=== PATIENT | female | born 1955 | race Caucasian/White ===

== ENCOUNTER 2024-11-11 22:30 | Emergency (ER) | payer MEDICARE, MEDICAID, SELFPAY ==
[2024-11-11 22:31] VITALS: BMI 36.6
[2024-11-11 23:01] VITALS: BP 143/85; PULSE 68; RESP 18; TEMP 36.8; O2SAT 95
--- NOTE | 2024-11-11 23:24 | XR_ITS ---
Examination: AP chest single view Technique one AP upright portable chest single view Exam date and time: November 11, 2024 1140 hrs. Indications: Chest pain today coughing one week. Findings: Opacity in the right middle lobe lingular segment Mild enlargement cardiac contour No pulmonary edema Significant osteopenia Impression: Pneumonia right middle lobe lingular segment left upper lobe
--- NOTE | 2024-11-11 23:24 | EKG_ITS ---
[facility] Test Date: 2024-11-11 Pat Name: MELISSA STACY Department: Room: - Gender: Female Equal Opportunity Director: : 1955 Requested By: Francisco Diaz Order Number: [id number] Reading MD: Francisco Diaz Measurements Intervals [place] Rate: 67 P: TX: QRS: 33 QRSD: 90 T: -3 QT: 297 QTc: 314 Interpretive Statements SUPRAVENTRICULAR RHYTHM LOW QRS VOLTAGE IN PRECORDIAL LEADS [QRS DEFLECTION < 1.0 mV IN CHEST LEADS] POSSIBLE ANTERIOR MYOCARDIAL INFARCTION , OF INDETERMINATE AGE [30 ms Q WAVE IN V3/V4, OR R < 0.2 mV IN V4] No previous ECG available for comparison /[email or web address]/[id number]
--- NOTE | 2024-11-11 23:24 | XR_ITS ---
Examination: CT brain head without contrast. 2-D sagittal coronal reconstructions Exam date and time: November 11, 2024 at 11:50 PM Indications: Headaches elevated blood pressure today, diagnosis multiple sclerosis CTDI: vol (mGy):49.9 DLP: (mGycm):1029 Technique: Multiple CT axial sections of the brain have been obtained, 5 mm slice thickness. Contrast has not been administered. 2-D sagittal, coronal reconstructions have been obtained Low dose protocols were performed. One or more of the following dose reduction techniques were used; automated exposure control, adjustment of the mA and/or KV according to patient size, use of iterative reconstruction technique. Findings: No significant ventricular enlargement. Intra-axial or extra-axial hemorrhage density is not seen. No mass effect or midline shift Basal cisterns are not remarkable. Fourth ventricle is midline. Cranial vault intact. Impression: Negative for acute hemorrhage, mass effect or midline shift Advise clinical correlation follow-up accordingly
--- NOTE | 2024-11-11 23:46 | EDNOTE_ITS ---
Upper Respiratory Inf. RME/HPI General Chief Complaint: Headache Stated Complaint: HIGH BLOOD PRESSURE, HEADACHE, BACK PAIN Time Seen by Provider: 11/11/24 23:20 Arrival date/time: 11/11/24 22:30 69F with history of MS, HTN, and DM presents to ED with 1 week of cough and 2 days of PETERS that started after she's been coughing a lot. Patient denies fall/trauma, LOC, AMS, seizures, vision changes, slurred speech, and N/V. Patient states this does not feel like an MS flare. Limitations: no limitations Related Data Previous Rx's ?Medication ?Instructions ?Recorded amoxicillin 875 mg-potassium 1 tab PO BID 7 days #14 t abs 11/12/24 clavulanate 125 mg tablet azithromycin 250 mg tablet 250 mg PO QDAY 4 days #4 ta bs 11/12/24 Allergies Allergy/AdvReac Type Severity Reaction Status Date / Time quetiapine (From Seroquel) Allergy Verified 11/11/24 22:31 Review of Systems Review of Systems Systems Reviewed: All systems reviewed, normal except as documented Constitutional Constitutional: Reports system reviewed and no additional complaints, except as documented, Reports as per HPI, Denies fever(s) and Reports headache(s) ENT Ears, Nose, Mouth, and Throat: Denies disequilibrium and Reports headache(s) Cardiovascular Cardiovascular: Reports system reviewed and no additional complaints, except as documented, Denies chest pain and Denies dyspnea Respiratory Respiratory: Reports system reviewed and no additional complaints, except as documented, Reports as per HPI, Reports cough and Denies dyspnea Gastrointestinal Gastrointestinal: Reports system reviewed and no additional complaints, except as documented, Denies abdominal pain, Denies nausea and Denies vomiting Neurologic Neurologic: Reports system reviewed and no additional complaints, except as documented, Denies confusion, Denies disequilibrium and Reports headache(s) Psychiatric Psychiatric: Denies confusion Past Medical History Social History SMOKING STATUS: Never smoker ED Exam General Limitations: Present no limitations General appearance: Present alert and in no apparent distress Head Head exam: Present atraumatic Eye Eye exam: Present normal appearance, PERRL and EOMI ENT ENT exam: Present normal exam, normal oropharynx and mucous membranes moist Neck Neck exam: Present normal inspection, full ROM and trachea midline Chest Chest inspection: Present normal inspection and symmetric chest wall rise Respiratory Respiratory exam: Present normal lung sounds bilaterally Cardiovascular Cardiovascular exam: Present regular rate, normal rhythm and normal heart sounds Abdominal Exam Abdominal exam: Present soft and normal bowel sounds Extremities Exam Extremities exam: Present normal inspection and full ROM Back Exam Back exam: Present normal inspection and full ROM Neurological Exam Neurological exam: Present alert, oriented X3 and CN II-XII intact Psychiatric Psychiatric exam: Present normal affect and normal mood Skin Skin exam: Present warm, dry, intact and normal color Course Quality Measures none Orders Category Date Time Status Bedside COVID-19 Antigen Test NOW Care 11/11/24 23:24 Active Bedside Influenza A&B Antigen Test NOW Care 11/11/24 23:25 Active Blood glucose [Bedside Blood Glucose] NOW Care 11/11/24 23:25 Active EKG (ED ONLY) *Do not use* NOW Care 11/11/24 23:[address] head/brain wo con Stat Exams 11/11/24 23:24 Taken EKG (ED Only) Stat Exams 11/11/24 23:24 Draft XR chest 1V portable Stat Exams 11/11/24 23:24 Completed CBC Stat Lab 11/11/24 23:58 Completed Comprehensive Metabolic Panel Stat Lab 11/11/24 23:58 Completed Troponin I Stat Lab 11/11/24 23:58 Completed Amoxicillin/Pot Clav 875 [Augmentin 875] Med 11/12/24 00:40 Discontinued 1 tab PO X1 ONE Azithromycin Po [Zithromax PO] Med 11/12/24 00:40 Discontinued 500 mg PO X1 ONE Vital Signs Vital signs: Vital Signs Temperature 98.3 F 11/11/24 23:01 Pulse Rate 68 11/11/24 23:01 Respiratory Rate 18 11/11/24 23:01 Blood Pressure 143/85 H 11/11/24 23:01 Pulse Oximetry (%) 95 11/11/24 23:01 Oxygen Delivery Method Room Air 11/11/24 23:01 O2 at 95% on RA and WNLs Upper Respiratory Infection MDM Narrative MDM Narrative:: 69F with history of MS, HTN, and DM presents to ED with 1 week of cough and 2 days of PETERS that started after she's been coughing a lot. Patient denies fall/trauma, LOC, AMS, seizures, vision changes, slurred speech, and N/V. Patient states this does not feel like an MS flare. Physical exam reveals normal pupil response and EOM. ENT and lungs clear. CN II- XII grossly intact. Strength equal bilaterally. Patient is afebrile, calm, and alert. CT head unremarkable. CXR PNA. EKG is NSR. Normal trop. Mild leukocytosis. CMP unremarkable except hyperglycemia in the 300s. Patient data External records reviewed:: [facility] previous records Clinical information provided by:: patient Social determinants that could affect healthcare access:: none Patient has the following chronic illnesses:: MS, HTN, and DM How is presenting disease/condition affected by chronic disease/condition?: exacerbated by Evaluation data The following diagnostics were reviewed and interpreted by me:: lab results, radiology exam(s) and EKG tracing(s) Lab and/or radiology exams considered but not ordered:: ordered Interpretation Summary: above Medications / Prescriptions Medications or Prescriptions considered but not ordered:: ordered Medication administrations:: Medication Administration History Discontinued Medications Amoxicillin/Clavulanate Potassium (Amoxicillin/Pot Clav 875 Tablet) 1 tab PO X1 ONE Stop: 11/12/24 00:41 Azithromycin (Azithromycin 250 Mg Tablet) 500 mg PO X1 ONE Stop: 11/12/24 00:41 above Consultations Consultation(s) initiated? (list below): No Diagnosis Upper Respiratory Differential Diagnosis: upper respiratory infection, croup, otitis media, sinusitis, viral infection, bronchitis, influenza, pharyngitis and other (CVA/TIA, brain bleed, PETERS, CAP, ACS, PE) Most likely diagnosis given after review of the tests above:: CAP Admission Indicated Admission indicated?: not indicated Admission Request Was there a request for admission?: No Disposition Plan Disposition Plan: Discharge Discharge Attestation Discharge Attestation: The patient and all family members were given an opportunity to ask questions and understood the discharge instructions. Discharge instructions specifically effects, indications for sooner follow up or return to the emergency department, and the expected course of current diagnosis. Patient condition: Stable Discharge Plan Plan Patient Disposition: HOME (Self Care) Disposition Comment: Stable Prescriptions/Referrals Prescriptions/Med Rec: New amoxicillin-pot clavulanate 875-125 mg tablet 1 tab PO BID 7 Days Qty: 14 0RF azithromycin 250 mg tablet 250 mg PO QDAY 4 Days Qty: 4 0RF Problem List Clinical Impression: CAP (community acquired pneumonia) Patient/Caregiver Discharge Instructions Additional Instructions: Please follow-up with PCP within 24-48 hours and return immediately if symptoms worsen. Print Language: Luxembourger Stand Alone Forms: Patient Portal Info Letter PA/DEBARKER OPERATOR Supervising Physician PA/DEBARKER OPERATOR Supervising Physician: Dr. William
[2024-11-12 00:29] LABS: Basophils # (Auto) 0.1 Thou/mm3 (0.0-0.2); Basophils % (Auto) 1 % (0-2.5); Eosinophils # (Auto) 0.3 Thou/mm3 (0.0-0.5); Eosinophils % (Auto) 2 % (0-10); Hematocrit 37.7 % (36.0-46.0); Immature Granulocytes % (Auto) 1 % (0-0); Immature Granulocytes Auto 0.08 Thou/mm3 (0.00-0.00); Lymphocytes # (Auto) 3.9 Thou/mm3 (1.0-4.8); Lymphocytes % (Auto) 30 % (10-50); Mean Corpuscular HGB Conc 34.5 g/dl (31.0-37.0); Mean Corpuscular Hemoglobin 29.9 pg (25.0-35.0); Mean Corpuscular Volume 87 fL (80-100); Monocytes # (Auto) 0.8 Thou/mm3 (0.0-0.8); Monocytes % (Auto) 6 % (0-12); Neutrophils % (Auto) 61 % (37-80); Nucleated Red Blood Cell % 0 /100 WBC (0); Platelet Count 310 Thou/mm3 (140-440); RDW Standard Deviation 43.3 fL (36.4-46.3); Red Blood Count 4.35 Miln/mm3 (4.00-5.20); White Blood Count 13.1 Thou/mm3 (3.6-11.0)
[2024-11-12 00:36] LABS: Alanine Aminotransferase 19 U/L (10-49); Albumin, Serum 4.5 gm/dL (3.4-4.8); Albumin/Globulin Ratio 1.2 (1.2-2.2); Alkaline Phosphatase 113 U/L (46-116); Anion Gap 9 (7-16); Aspartate Amino Transferase 20 U/L (0-34); BUN/Creatinine Ratio 18 Ratio (12-20); Bilirubin,Total 0.3 mg/dL (0.3-1.2); Blood Urea Nitrogen 18 mg/dL (9-23); Calcium 10.1 mg/dL (8.3-10.6); Calcium (Corrected) 10.1 mg/dL (8.5-10.1); Carbon Dioxide 26.4 mMol/L (20.0-31.0); Chloride 103 mMol/L (98-107); Estimated Creatinine Clearance 61.2 mL/min (>60); Globulin 3.8 gm/dL (2.3-3.5); Glucose 330 mg/dL (74-106); Osmolality,Calculated 290 (275-295); Potassium 4.4 mMol/L (3.4-5.1); Sodium 138 mMol/L (136-145); Total Protein 8.3 gm/dL (5.7-8.2); Troponin I < 0.002 ng/mL (0.0-0.045); eGFR > 60 See Note
--- NOTE | 2024-11-12 00:36 | PRELIM_ITS ---
CT scan of the head without intravenous contrast (axial sections with sagittal and coronal reformats) November 11, 2024 2350 hours Clinical history: Headache; BP 200 at home Comparison: None. Findings: There is no evidence of intracranial hemorrhage, mass effect or midline shift. There are periventricular white matter hypodensities, compatible with chronic small vessel ischemia. There is moderate volume loss. The calvarium is unremarkable. The mastoid air cells and the visualized paranasal sinuses are clear. Impression: No evidence of intracranial hemorrhage, mass effect or midline shift. Chronic small vessel ischemia and volume loss. Aspect score 10. Report Electronically Signed By: Marquis Carpenter 11/12/2024 12:35:57 AM [EST]
[2024-11-12] MEDS: AZITHROMYCIN 250 MG TABLET 500 MG PO (00:50)
[2024-11-12] MEDS: AMOXICILLIN/POT CLAV 875 TABLET 1 TAB PO (00:50)
== END 2024-11-12 00:56 | disposition home or self-care (01) ==
LOC: SERX 11-12 00:54
PROVIDERS: Physician Assistant; Emergency Provider Emergency Medicine
DX: J18.9 Pneumonia, unspecified organism (principal); E11.65 Type 2 diabetes mellitus with hyperglycemia; I10 Essential (primary) hypertension; G35 Multiple sclerosis
CPT/HCPCS: 36415; 70450; 71045; 80053; 84484; 85025; 93005; 99284; A9270